=== PATIENT | female | born 1980 | race Caucasian/White ===

== ENCOUNTER 2017-02-19 08:35 | Emergency (ER) | payer OTHER ==
[2017-02-19 09:07] VITALS: BP 104/76
[2017-02-19] MEDS ORDERED: BALANCED SALT OPHTHALMIC SOL 120 ML BOTTLE ONE (11:03)
--- NOTE | 2017-02-19 11:10 | ED Physician Documentation ---
PD HPI OPHTHO - Stated complaint Stated Complaint: LEFT EYE IRRITATION - Chief complaint Chief Complaint: Heent - History obtained from History obtained from: Patient - History of Present Illness Timing - onset: Last night Timing - duration: Hours Timing - details: Abrupt onset, Still present Location: Left Quality / character: Itching Associated symptoms: Swelling, FB sensation. No: Redness, Tearing, Discharge Contributing factors: Other ([place] and had sudden onset of swelling in the left eye and it has not resolved.) Similar symptoms before: Has not had sx before Recently seen: Not recently seen - Additional information Additional information: 36 y/o female otherwise well was hiking when she developed the swelling in the left eye. She did not rinse the eye and has some continued irritation and swelling of the lower lid. Review of Systems Constitutional: denies: Fever Eyes: reports: Irritation. denies: Loss of vision, Decreased vision, Photophobia, Discharge Ears: denies: Ear pain Nose: denies: Congestion Throat: denies: Sore throat Respiratory: denies: Cough PD PAST MEDICAL HISTORY - Present Medications Home Medications: Ambulatory Orders Medication Instructions Recorded Confirmed No Known Home Medications [No 02/19/17 02/19/17 Known Home Medications] - Allergies Allergies/Adverse Reactions: Allergies Allergy/AdvReac Type Severity Reaction Status Date / Time Penicillins Allergy Unknown Verified 02/19/17 09:07 PD ED PE NORMAL - Vitals Vital signs reviewed: Yes (normal ) - General General: Alert and oriented X 3, No acute distress, Well developed/nourished - HEENT HEENT: Atraumatic, PERRL, EOMI, Ears normal, Moist mucous membranes, Other ( There is minimal swelling to the soft tissues of the lower lid of the left eye. There is no scleral injection and no FB present. The fluroscien staining is negative. ) - Neck Neck: Supple, no meningeal sign, No bony TTP - Respiratory Respiratory: No respiratory distress - Derm Derm: Normal color, Warm and dry, No rash - Neuro Neuro: No motor deficit, No sensory deficit - Psych Psych: Normal mood, Normal affect Results - Vitals Vitals: Vital Signs - 24 hr 02/19/17 09:05 Temperature 37 C Heart Rate 56 L Respiratory 12 Rate Blood Pressure 104/76 O2 Saturation 100 Oxygen O2 Source Room air PD MEDICAL DECISION MAKING - ED course Complexity details: considered differential, d/w patient ED course: 36 y/o female otherwise well has developed what sounds like acute allergic conjunctivitis Here in the Ed her eye was rinsed with eye stream. Departure - Departure Disposition: 01 Home, Self Care Clinical Impression: Allergic conjunctivitis Qualifiers: Laterality: left Qualified Code(s): H10.12 - Acute atopic conjunctivitis, left eye Condition: Stable Instructions: ED Allergic Conjunctivitis Follow-Up: Your, doctor [Other] Comments: rinse your eye out again and apply a cool compress. Take benadryl today and expect symptoms to resolve rapidly. (1-2 days)
== END 2017-02-19 11:23 | disposition home or self-care (01) ==
LOC: ED 08:35
DX: H10.12 Acute atopic conjunctivitis, left eye (principal)
CPT/HCPCS: 99282; 99283; A9270